=== PATIENT | female | born 1960 | race Caucasian/White ===

== ENCOUNTER → 2020-06-25 10:11 | Outpatient (CLI) | payer BC, SELFPAY ==
--- NOTE | ~2020-06-25 | MM_ITS ---
EXAMINATION: MM screening saman BI w yaya HISTORY: Screening TECHNIQUE: Craniocaudal and mediolateral oblique 3-D tomosynthesis images were obtained and synthetic 2-D images were generated. CAD analysis was submitted and interpreted. COMPARISON: Comparison to multiple prior studies sequentially, with oldest reviewed study dated 03/08. BREAST PARENCHYMAL COMPOSITION: There are scattered areas of fibroglandular density. FINDINGS: There are focal asymmetries in the upper aspect of the left breast on MLO view which were n ot definitely seen on prior examination. The right breast is stable without evidence for malignancy. IMPRESSION: 1. Focal left breast asymmetries. 2. Additional mammographic views and possible breast ultrasound are recommended. BI-RADS Category 0: Incomplete: Needs additional imaging evaluation. Reviewed, dictated and finalized at location A. ST RELATIONSHIP MANAGER IMPRESSION: 1. Focal left breast asymmetries. 2. Additional mammographic views and possible breast ultrasound are recommended . BI-RADS Category 0: Incomplete: Needs additional imaging evaluation.
== END ==
PROVIDERS: PCP Internal Medicine; Visit Provider Obstetrics & Gynecology
DX: Z12.31 Encounter for screening mammogram for malignant neoplasm of breast (principal); R92.8 Other abnormal and inconclusive findings on diagnostic imaging of breast
CPT/HCPCS: 77063; 77067

== ENCOUNTER → 2020-07-19 08:43 | Outpatient (CLI) | payer BC, SELFPAY ==
--- NOTE | ~2020-07-19 | MMUS_ITS ---
EXAMINATION: MM diagnostic mammo unilat LT, US breast LT limited HISTORY: Left breast focal asymmetry on screening mammogram TECHNIQUE: Additional 3-D tomosynthesis images of the left breast were performed and synthetic 2-D im ages were generated. CAD analysis was submitted and interpreted. High resolution limited left breast ultrasound was performed. COMPARISON: 06/25/2020, 04/01/2019, 04/12/2018, 04/07/2017 FINDINGS: MAMMOGRAPHIC FINDINGS: There is a 7 mm oval, obscured, equal density mass in the anterior/middle third of the upper inner br east at the 10:00 location 6 cm from the nipple. There appears to be a fatty component of the mass. N o additional mass, architectural distortion, or suspicious calcification are identified. ULTRASOUND: There is a 6 mm x 4 mm oval, circumscribed, parallel hypoechoic mass with apparent fatty component at the 9:00 location 5 cm from the nipple. The mass demonstrates no posterior features or internal vasc ularity. Cysts measuring up to 4 mm are noted at the 10:00 and 11:00 locations. IMPRESSION: 1. Left breast mass with imaging features suggestive of an intramammary lymph node. 2. Recommend 6 month follow-up left diagnostic mammogram and ultrasound. BI-RADS category 3, probably benign findings. Reviewed, dictated and finalized at location A. OMER CARE MANAGER IMPRESSION: 1. Left breast mass with imaging features suggestive of an intramammary lymph n ode. 2. Recommend 6 month follow-up left diagnostic mammogram and ultrasound. BI-RADS category 3, probably benign findings.
== END ==
PROVIDERS: PCP Internal Medicine; Visit Provider Obstetrics & Gynecology
DX: R92.8 Other abnormal and inconclusive findings on diagnostic imaging of breast (principal)
CPT/HCPCS: 76642; 77065

== ENCOUNTER → 2021-01-16 09:49 | Outpatient (CLI) | payer BC, SELFPAY ==
--- NOTE | ~2021-01-16 | MMUS_ITS ---
EXAMINATION: MM diagnostic saman LT w yaya, US breast LT limited HISTORY: Follow-up left breast mass TECHNIQUE: Additional 3-D tomosynthesis images of the left breast were performed and synthetic 2-D im ages were generated. CAD analysis was submitted and interpreted. High resolution Limited left breast ultrasound was performed. COMPARISON: Comparison to multiple prior studies sequentially, with oldest reviewed study dated 03/16. BREAST PARENCHYMAL COMPOSITION: Breast composed of scattered areas of fibroglandular density. FINDINGS: MAMMOGRAPHIC FINDINGS: The left breast is stable. No new masses, calcifications or architectural distortion in the left grupo st to suggest malignancy. ULTRASOUND: Limited left breast ultrasound: At 11:00, 2 cm from the nipple, there is 3 mm cyst. At 10:00, 5 cm fr om the nipple there is a 2 mm cyst. At 10:00, 4 cm from the nipple, there is a 4 mm cyst. At 9:00, 5 cm from the nipple, a hypoechoic mass with echogenic hilum, compatible with benign intramammary lymph node measuring up to 4 mm, stable.. IMPRESSION: 1. No evidence for malignancy in the left breast. Benign findings. 2. Routine yearly screening mammogram and regular clinical breast examination are recommended. BI-RADS Category 2: Benign finding(s). Reviewed, dictated and finalized at location A. IMPRESSION: 1. No evidence for malignancy in the left breast. Benign findings. 2. Routine yearly screening mammogram and regular clinical breast examination a re recommended. BI-RADS Category 2: Benign finding(s).
== END ==
PROVIDERS: PCP Internal Medicine; Visit Provider Obstetrics & Gynecology
DX: R92.8 Other abnormal and inconclusive findings on diagnostic imaging of breast (principal)
CPT/HCPCS: 76642; 77061; 77065; G0279

== ENCOUNTER → 2022-10-01 10:40 | Outpatient (CLI) | payer BC, SELFPAY ==
--- NOTE | ~2022-10-01 | MM_ITS ---
EXAMINATION: MM screening saman BI w yaya HISTORY: Screening mammogram, family history of breast cancer in her mother. TECHNIQUE: Craniocaudal and mediolateral oblique 3-D tomosynthesis images were obtained and synthetic 2-D images were generated. CAD analysis was submitted and interpreted. COMPARISON: 01/16/2021, 07/19/2020, 06/25/2020, 04/01/2019 BREAST PARENCHYMAL COMPOSITION:There are scattered areas of fibroglandular density. FINDINGS: No suspicious mass, calcification, or architectural distortion are identified in either ven[place] ast to suggest malignancy. There has been no suspicious interval change. IMPRESSION: No mammographic evidence of malignancy. Recommend routine screening mammography in one year. BI-RADS Category 1: Negative Reviewed, dictated and finalized at location .
== END ==
PROVIDERS: PCP Obstetrics & Gynecology; Visit Provider Obstetrics & Gynecology
DX: Z12.31 Encounter for screening mammogram for malignant neoplasm of breast (principal)
CPT/HCPCS: 77063; 77067

== ENCOUNTER 2023-02-25 11:04 | Emergency (ER) | payer BC, SELFPAY ==
--- NOTE | 2023-02-25 11:11 | ED.EAR ---
HPI - Ear Problem General Chief complaint: Ear Stated complaint: Left Earache Time Seen by Provider: 02/25/23 11:15 Source: patient Mode of arrival: ambulatory Limitations: no limitations History of Present Illness HPI Narrative: Patient is a 62-year-old female that presents with left ear pain and drainage. Patient states she flew in from [place] on Thursday and had ear fullness since. Patient states yesterday ear was very painful. Patient reports last night she had an episode of feeling like it popped and then drainage started. Denies any fever, chills, nausea, vomiting, diarrhea. Denies any congestion, sore throat, cough. Has been taking Sudafed. Complaint: ear pain Related Data Allergies Allergy/AdvReac Type Severity Reaction Status Date / Time No Known Allergies Allergy Unverified 02/25/23 11:22 Review of Systems Review of Systems: All systems reviewed & are unremarkable except as noted in HPI and below Constitutional: Constitutional: Denies body ache(s), Denies chills, Denies fever(s), Denies headache(s) and Denies malaise Eyes: Eyes: Denies blurry vision, Denies eye discharge and Denies irritation ENT: Reports otalgia, Denies headache(s), Denies nasal congestion, Denies nasal discharge and Denies sore throat Cardiovascular: Cardiovascular: Denies chest pain, Denies edema, Denies palpitations and Denies dyspnea on exertion Respiratory: Respiratory: Denies cough and Denies dyspnea on exertion Gastrointestinal: Gastrointestinal: Denies abdominal pain, Denies diarrhea, Denies nausea and Denies vomiting Musculoskeletal: Musculoskeletal: Denies back pain, Denies arthralgias and Denies muscle weakness Integumentary/Breasts: Skin/Breast: Denies pruritus and Denies rash Neurologic: Denies headache(s) Psychiatric: Psychiatric: Reports no additional psychiatric complaints Endocrine: Endocrine: Denies palpitations PMFSH Social History Social History Smoking status: Never smoker Comments At time of signature, agree with nursing past medical, surgical, social and family history. There is no relevant family history pertinent to the presenting complaint? Exam Const: General: cooperative, healthy appearing, no acute distress and well nourished Nutritional Appearance: well nourished Orientation/consciousness: patient oriented x3 Limitations: no limitations HENMT: Head: normal to inspection, normocephalic and atraumatic Ears: hearing grossly normal bilaterally, EAC's normal, no periauricular adenopathy and TM abnormal obstructed by cerumen on the right and perforated with clear discharge on the left Face/Nose/Sinus: Normal external nose present, Normal nares present, Normal nasal mucous membranes and turbinates present, No nasal discharge present, normal facial exam and sinuses nontender Face and sinus: normal facial exam and sinuses nontender Mouth: Yes Normal oral and palatal mucosa present, Yes lip normal, Yes tongue normal and Yes moist mucous membranes Throat: posterior oropharynx normal, tonsils normal and uvula midline Eyes: General: appearance normal, both eyes and all related structures Alignment and Position: alignment normal and position normal Eyelids: eyelids normal Pupils: Equal, round and reactive pupils present EOM: EOMs intact bilaterally Neck: Neck: normal visual inspection, full ROM, no lymphadenopathy and supple Chest: Chest palpation & inspection: normal inspection of the chest Resp: Effort & Inspection: normal respiratory effort and able to speak in complete sentences Auscultation: clear to auscultation bilaterally, no crackles, no rales, no rhonchi and no wheezes Cardio: Rate: regular rate Rhythm: regular rhythm Heart sounds: S1 normal heart sound present and S2 normal heart sound present Skin: General skin exam: normal color and no rashes or lesions noted Neuro: General: patient oriented x3 and moves all extremities Cranial ner
[2023-02-25 11:19] VITALS: BP 114/59; PULSE 65; RESP 16; TEMP 35.9; O2SAT 100
[2023-02-25 11:41] VITALS: BP 114/59; PULSE 65; RESP 16; TEMP 35.9; O2SAT 100
== END 2023-02-25 11:37 | disposition home or self-care (01) ==
PROVIDERS: Emergency Provider Nurse Practitioner Family; PCP Internal Medicine
DX: H66.015 Acute suppurative otitis media with spontaneous rupture of ear drum, recurrent, left ear (principal); H61.21 Impacted cerumen, right ear
CPT/HCPCS: 99203; G0463

== ENCOUNTER 2023-12-04 12:06 | Outpatient (CLI) | payer BC, SELFPAY ==
--- NOTE | ~2023-12-04 | MM_ITS ---
EXAMINATION: MM screening saman BI w yaya HISTORY: Screening TECHNIQUE: Craniocaudal and mediolateral oblique 3-D tomosynthesis images were obtained and synthetic 2-D images were generated. CAD analysis was submitted and interpreted. COMPARISON: Comparison to multiple prior studies sequentially, with oldest reviewed study dated 03/16. BREAST PARENCHYMAL COMPOSITION: Not dense: There are scattered areas of fibroglandular density. FINDINGS: There are developing nodular asymmetries bilaterally in the upper outer quadrant of the rig ht breast and in the periareolar location of the left breast. IMPRESSION: 1. Developing bilateral nodular asymmetries. 2. Additional mammographic views and possible breast ultrasound are recommended. BI-RADS Category 0: Incomplete: Needs additional imaging evaluation. Reviewed, dictated and finalized at location B. IMPRESSION: 1. Developing bilateral nodular asymmetries. 2. Additional mammographic views and possible breast ultrasound are recommended . BI-RADS Category 0: Incomplete: Needs additional imaging evaluation.
== END 2023-12-04 12:07 ==
LOC: MICIMG 12:07
PROVIDERS: PCP Obstetrics & Gynecology; Visit Provider Obstetrics & Gynecology
DX: Z12.31 Encounter for screening mammogram for malignant neoplasm of breast (principal); R92.8 Other abnormal and inconclusive findings on diagnostic imaging of breast
CPT/HCPCS: 77063; 77067

== ENCOUNTER 2024-01-06 09:02 | Outpatient (CLI) | payer BC, SELFPAY ==
--- NOTE | ~2024-01-06 | MMUS_ITS ---
EXAMINATION: MM diagnostic saman BI w yaya, US breast BI complete HISTORY: Follow-up breast asymmetries TECHNIQUE: Additional 3-D tomosynthesis images of the breasts were performed and synthetic 2-D images were generated. CAD analysis was submitted and interpreted. High resolution bilateral complete breas t ultrasound was performed. COMPARISON: Comparison to multiple prior studies sequentially, with oldest reviewed study dated 03/15. BREAST PARENCHYMAL COMPOSITION: Not dense: There are scattered areas of fibroglandular density. FINDINGS: MAMMOGRAPHIC FINDINGS: Scattered bilateral breast asymmetries are less apparent with spot compression and mediolateral views , likely superimposed fibroglandular content. ULTRASOUND: Complete bilateral US of all 4 quadrants of the breasts and retroareolar region was reviewed. Right breast: At 9:00, 5.5 cm from the nipple, there is a 5 mm cyst. Left breast: At 2:00, 6 cm from the nipple, there is a focal hypoechoic 3 mm mass which appears to be contiguous with a duct. This may represent a superimposed mass or focal dilation of the associated d uct, likely benign. At 11:00, 6 cm from the nipple there is an oval hypoechoic mass measuring 4 mm, l ikely benign. IMPRESSION: 1. Probable benign findings of the left breast. No evidence for malignancy in the right breast. 2. Recommend 6 month follow-up Limited left breast ultrasound BI-RADS category 3, probably benign findings. Reviewed, dictated and finalized at location B. IMPRESSION: 1. Probable benign findings of the left breast. No evidence for malignancy in t he right breast. 2. Recommend 6 month follow-up Limited left breast ultrasound BI-RADS category 3, probably benign findings.
== END 2024-01-06 09:03 ==
LOC: MICIMG 09:03
PROVIDERS: PCP Obstetrics & Gynecology; Visit Provider Obstetrics & Gynecology
DX: R92.8 Other abnormal and inconclusive findings on diagnostic imaging of breast (principal)
CPT/HCPCS: 76641; 77062; 77066; G0279

== ENCOUNTER 2024-06-03 09:39 | Outpatient (CLI) | payer BC, SELFPAY ==
--- NOTE | ~2024-06-03 | US_ITS ---
US breast LT limited 06/03/2024 10:13 Indication: Six-month follow-up right breast mass Procedure: High-resolution Limited ultrasound of the left breast Comparison: 01/06/2024 Findings: At 2:00, 6 cm from the nipple there is a 3 mm cyst. No suspicious masses to suggest maligna ncy. Impression: 1: Benign cyst measuring 3 mm at 2:00, 6 cm from the nipple. No sonographic evidence for malignancy. Routine yearly screening mammogram and regular clinical breast examination are recommended. BI-RADS CATEGORY 2 - BENIGN FINDINGS Reviewed, dictated and finalized at location B. K PARTS FABRICATOR Impression: 1: Benign cyst measuring 3 mm at 2:00, 6 cm from the nipple. No sonographic patti dence for malignancy. Routine yearly screening mammogram and regular clinical breast examination are recommended. BI-RADS CATEGORY 2 - BENIGN FINDINGS
== END 2024-06-03 09:40 | disposition home or self-care (01) ==
PROVIDERS: PCP Family Medicine; Visit Provider Obstetrics & Gynecology
DX: R92.8 Other abnormal and inconclusive findings on diagnostic imaging of breast (principal); N60.01 Solitary cyst of right breast
CPT/HCPCS: 76642

== ENCOUNTER 2024-10-03 13:57 | Outpatient (CLI) | payer MEDICARE, SELFPAY ==
[2024-10-03 19:35] LABS: Hemoglobin 12.3 g/dL (12.0-15.0); Mean Corpuscular HGB Conc 30.8 g/dl (32-36); Mean Corpuscular Hemoglobin 26.3 pg (26-34); Mean Corpuscular Volume 85.5 fl (80-100); Mean Platelet Volume 10.1 fl (7.4-10.4); Platelet Count Result 362 k/mm3 (150-375); Red Blood Count 4.68 M/mm3 (4.2-5.4); Red Cell Distribution Width 14.6 % (11.5-14.5); White Blood Count 7.1 K/mm3 (4.5-10.0)
[2024-10-03 19:44] LABS: Alanine Aminotransferase 18 U/L (6-35); Albumin Level 4.5 g/dL (3.5-5.1); Alkaline Phosphatase 95 U/L (38-126); Anion Gap 12 mmol/L (4-12); Aspartate Amino Transferase 37 U/L (14-36); Bilirubin,Total 0.5 mg/dL (0.2-1.3); Blood Urea Nitrogen 12 mg/dL (7-17); Calcium 9.4 mg/dL (8.4-10.2); Carbon Dioxide 27 mmol/L (22-30); Chloride 102 mmol/L (98-107); Cholesterol 248 mg/dL (0-200); Estimated Glomerular Filt Rate > 60; Glucose 85 mg/dL (65-110); HDL Direct 73 mg/dL; Potassium 4.5 mmol/L (3.4-5.0); Sodium 141 mmol/L (137-145); Triglycerides 71 mg/dL (<150)
[2024-10-03 19:56] LABS: LDL Cholesterol Direct 124 mg/dL
[2024-10-03 20:49] LABS: Hemoglobin A1C 5.3 % (<5.7)
== END 2024-10-03 13:58 | disposition home or self-care (01) ==
LOC: ANHGOSHLAB 13:58
PROVIDERS: PCP Family Medicine; Visit Provider Family Medicine
DX: E55.9 Vitamin D deficiency, unspecified (principal); E66.9 Obesity, unspecified; R73.03 Prediabetes; Z79.899 Other long term (current) drug therapy
CPT/HCPCS: 36415; 80053; 80061; 82652; 83036; 84443; 85027

== ENCOUNTER 2025-02-08 12:27 | Outpatient (CLI) | payer MEDICARE, SELFPAY ==
--- NOTE | ~2025-02-08 | MM_ITS ---
EXAMINATION: screening [facility] BI w yaya INDICATION: Asymptomatic, referred for screening mammogram COMPARISON: 12/04/2023 through 04/12/2018 TECHNIQUE: Digital Breast Tomosynthesis CC, MLO views of Both breasts were obtained with computer-aided detection to assist in interpretation of the study. FINDINGS: There are scattered areas of fibroglandular density. There is a mass with partially obscured margins in the superior lateral right breast at middle third. Elsewhere, there are no mammographic features of malignancy. IMPRESSION: 1. Right breast Mass. 2. No evidence of malignancy in the Left breast. 3. There is an existing recommendation for short-term follow-up on probably benign sonographic findings in the left breast on the study completed on 01/06/2024. RECOMMENDATION: Right breast Diagnostic mammogram with true lateral, appropriate spot compression views and an ultrasound if needed. Left breast ultrasound to evaluate probably benign findings. BI-RADS Category 0: Incomplete: Needs additional imaging evaluation. Reviewed, dictated and finalized at location B. IMPRESSION: 1. Right breast Mass. 2. No evidence of malignancy in the Left breast. 3. There is an existing recommendation for short-term follow-up on probably be nign sonographic findings in the left breast on the study completed on 4. RECOMMENDATION: Right breast Diagnostic mammogram with true lateral, appropriate spot compressi on views and an ultrasound if needed. Left breast ultrasound to evaluate probably benign findings. BI-RADS Category 0: Incomplete: Needs additional imaging evaluation.
== END 2025-02-08 12:28 | disposition home or self-care (01) ==
LOC: MICIMG 12:27
PROVIDERS: PCP Family Medicine; Visit Provider Obstetrics & Gynecology
DX: Z12.31 Encounter for screening mammogram for malignant neoplasm of breast (principal); N63.10 Unspecified lump in the right breast, unspecified quadrant; R92.8 Other abnormal and inconclusive findings on diagnostic imaging of breast
CPT/HCPCS: 77063; 77067

== ENCOUNTER 2025-03-07 08:48 | Outpatient (CLI) | payer MEDICARE, SELFPAY ==
--- NOTE | ~2025-03-07 | MMUS_ITS ---
EXAMINATION: MM diagnostic saman RT w yaya, US breast RT limited INDICATION: 64-year old female; BI-RADS 0, callback to evaluate Right breast mass COMPARISON: 02/08/2025 TECHNIQUE: Digital breast tomosynthesis ML and spot compression CC and MLO views of right breast were obtained with computer-aided detection to assist in interpretation of the study. FINDINGS: There are scattered areas of fibroglandular density. A mass with microlobulated margins persists in the superior central at middle depth. In addition there is a circumscribed mass in the left lateral central at middle depth within the right breast that persisted. Ultrasound was performed for further evaluation. RIGHT BREAST ULTRASOUND FINDINGS: Targeted evaluation of areas of concern is completed. At 12:00, 6 cm from the nipple there is a 1.2 x 0.7 x 0.9 cm heterogeneous hyperechoic mass which correlates to a mammographic finding. In addition, at 9:00, 8 cm from the nipple there is a 0.4 x 0.5 x 0.3 cm cyst which correlates to a mammographic finding. IMPRESSION: 1. Suspicious right breast mass at 12:00 location that correlates to mammography finding. Biopsy is recommended. 2. Benign cyst correlates to the mammographic finding at 9:00 location. No further investigation necessary RECOMMENDATION: Ultrasound-guided core needle biopsy of right breast mass at 12:00 location with clip placement and correlation with mammography finding. This lesion is better visualized on mammography and stereotactic biopsy procedure may provide an accurate access to these lesion. BI-RADS 4, SUSPICIOUS Reviewed, dictated and finalized at location B. IMPRESSION: 1. Suspicious right breast mass at 12:00 location that correlates to mammograp hy finding. Biopsy is recommended. 2. Benign cyst correlates to the mammographic finding at 9:00 location. No fur ther investigation necessary RECOMMENDATION: Ultrasound-guided core needle biopsy of right breast mass at 12:00 location wit h clip placement and correlation with mammography finding. This lesion is jovanna r visualized on mammography and stereotactic biopsy procedure may provide an ac curate access to these lesion. BI-RADS 4, SUSPICIOUS
== END 2025-03-07 08:49 | disposition home or self-care (01) ==
LOC: MICIMG 08:49
PROVIDERS: PCP Family Medicine; Visit Provider Family Medicine
DX: N63.11 Unspecified lump in the right breast, upper outer quadrant (principal); R92.8 Other abnormal and inconclusive findings on diagnostic imaging of breast
CPT/HCPCS: 76642; 77061; 77065; G0279

== ENCOUNTER 2025-03-17 12:52 | Outpatient (CLI) | payer MEDICARE, SELFPAY ==
--- NOTE | ~2025-03-17 | MM_ITS ---
MM stereotactic bx RT, MM stereotactic specimen RT EXAMINATION: MM stereotactic bx RT, MM stereotactic specimen RT DATE: Gary Singer M.D. INDICATION: Abnormal mass upper outer quadrant in the right breast. Stereotactic core biopsy is requested evaluate for malignancy.] BREAST PARENCHYMAL COMPOSITION: Not dense: There are scattered areas of fibroglandular density. TECHNIQUE AND FINDINGS: The risks and potential benefits of the procedure were discussed with the patient and written informed consent was obtained. The patient was placed in the prone position clustered at the table with the right breast in mediolateral compression, and the area of interest was localized and targeted utilizing digital imaging with stereotaxis. After sterile preparation of the skin, 1% lidocaine was utilized for local anesthesia at the skin puncture site and 1% lidocaine with epinephrine was utilized for deeper local anesthesia/is about the biopsy site. A 9G Eviva vacuum assisted biopsy needle was advanced to the level of the calcification of interest from a lateral approach utilizing stereotactic guidance and a total of 6 tissue core biopsies were obtained. A specimen radiograph demonstrates that the calcifications of interest are included within the tissue cores. A tissue marker clip was then placed at the biopsy site. The needle was removed and hemostasis was achieved. The patient tolerated the procedure well and there is no evidence of significant immediate complication. The patient was given verbal as well as written postprocedural instructions prior to discharge from the department. Tissue cores were submitted to surgical pathology for histologic analysis. A 2-view right unilateral digital mammogram was obtained post procedure and this demonstrates that the tissue marker clip is in expected position.] IMPRESSION: 1. Successful stereotactic biopsy of mass in the upper outer quadrant of the right breast with post procedure mammogram for marker placement. Please refer to pathology report for histologic analysis. Reviewed, dictated and finalized at location B. IMPRESSION: 1. Successful stereotactic biopsy of mass in the upper outer quadrant of the r ight breast with post procedure mammogram for marker placement. Please refer t o pathology report for histologic analysis.
--- NOTE | 2025-03-17 14:10 | S_PTH ---
PATIENT: Inez Valenzuela LOC: [facility] #:[id number] AGE/SX: 64/F ROOM: RE03/17/[address]: Chelsie Whalen DO : 1960 BED: DIS: 03/17/2025 SPEC #: [id number] RECD: 03/20/25 13:33 STATUS: TROY RESlava #: [id number] MIKAEL: 03/17/25 14:[address]: Chelsie Whalen DEPT: [facility] Surgical RECD BY: Karie Pino Tissues: A - Breast Biopsy Procedures: Hematoxylin and Eosin Stain Gross and Microscopic Level 4
== END 2025-03-17 12:53 | disposition home or self-care (01) ==
PROVIDERS: PCP Family Medicine; Visit Provider Family Medicine
DX: N63.11 Unspecified lump in the right breast, upper outer quadrant (principal); R92.8 Other abnormal and inconclusive findings on diagnostic imaging of breast
CPT/HCPCS: 19081; 88305